=== PATIENT | male | born 1995 | race Two or more races ===

== ENCOUNTER 2020-01-19 19:00 | Emergency (ER) | payer SELFPAY ==
[~2020-01-19] VITALS: Ht 175.3 cm; Wt 86.3 kg
[2020-01-19] MEDS ORDERED: IV NORMAL SALINE 1000ML BAG 1,000 ML IV SCH (19:33)
[2020-01-19] MEDS ORDERED: ONDANSETRON PF 4 MG/2 ML VIAL. ONE (19:35)
[2020-01-19] MEDS ORDERED: HYDROmorphone 2 MG/ML VIAL ONE (19:36)
[2020-01-19 19:41] LABS: BASO # 0.1 x10^3/uL (0.0-0.2); BASO % 1 % (0-3); EOS % 0 % (0-3); HEMATOCRIT 42.2 % (39.0-53.0); HEMOGLOBIN 14.6 g/dL (13.0-17.5); LYMPH # 2.2 x10^3/uL (1.0-4.8); LYMPH % 20 % (24-48); MEAN CORPUSCULAR HEMOGLOBIN 30 pg (25-35); MEAN CORPUSCULAR HGB CONC 35 g/dL (31-37); MEAN CORPUSCULAR VOLUME 87 fL (79-100); MONO % 9 % (0-9); NEUT % 70 % (31-73); PLATELET COUNT 354 x10^3/uL (140-400); RED BLOOD COUNT 4.82 x10^6/uL (4.30-5.70); WHITE BLOOD COUNT 11.3 x10^3/uL (4.0-11.0)
[2020-01-19] MEDS: HYDROmorphone 2 MG/ML VIAL IV/SQ PRN ×2 (19:45→21:05)
[2020-01-19] MEDS ORDERED: ONDANSETRON PF 4 MG/2 ML VIAL. IVP ONE (19:45)
[2020-01-19 19:53] LABS: CALCIUM 9.5 mg/dL (8.5-10.1); CREATININE 1.4 mg/dL (0.7-1.3); GFR 61.3; POTASSIUM 3.3 mmol/L (3.5-5.1)
[2020-01-19 19:57] LABS: ALBUMIN 4.4 g/dL (3.4-5.0); DIRECT BILIRUBIN 0.2 mg/dL (0.0-0.2); TOTAL BILIRUBIN 0.6 mg/dL (0.2-1.0); TOTAL PROTEIN 8.2 g/dL (6.4-8.2)
[2020-01-19] MEDS ORDERED: IOHEXOL 300 MG/ML 100ML VIAL. IV ONE (20:00)
[2020-01-19] MEDS ORDERED: CONTRAST GIVEN. MC PRN (20:00)
[2020-01-19] MEDS ORDERED: ONDANSETRON PF 4 MG/2 ML VIAL. IM ONE (20:00)
--- NOTE | 2020-01-19 20:07 | RAD ---
CT abdomen pelvis with contrast dated 01/19/2020. No comparison available. CLINICAL INDICATION: Abdominal pain. TECHNIQUE: Contiguous axial imaging the abdomen pelvis performed following the intravenous demonstration of 80 cc Isovue-370. One or more of the following individualized dose reduction techniques were utilized for this examination: 1. Automated exposure control 2. Adjustment of the mA and/or kV according to patient size 3. Use of iterative reconstruction technique. FINDINGS: There is a 3 mm calcific stone at the right UVJ with mild proximal dilation the right ureter and right collecting system. Mild inflammatory stranding in the right perinephric fat. Left kidney is unremarkable. No left-sided stone or hydronephrosis. Liver, spleen, pancreas, gallbladder and adrenal glands are unremarkable. Unopacified GI tract normal in caliber and contour. No focal bowel wall thickening. The appendix is normal in caliber. No ascites or lymphadenopathy. Images of the pelvis show nondistended urinary bladder. Prostate gland normal in size. No free fluid or pelvic lymphadenopathy. Limited images of lung bases are clear. Heart size within normal limits. No pleural or pericardial effusion. Bone windows show no acute findings. IMPRESSION: 1. There is a 3 mm calcific stone at the right UVJ with mild obstructive uropathy. 2. Otherwise no acute findings. Normal appendix. Electronically signed by: Wilfrido Taylor MD (01/19/2020 8:04 PM) [facility]
[2020-01-19] MEDS ORDERED: KETOROLAC 15 MG/ML VIAL. IVP ONE (21:00)
[2020-01-19] MEDS ORDERED: TAMSULOSIN 0.4 MG CAP.ER.24H. PO ONE (21:00)
[2020-01-19 21:24] LABS: BILIRUBIN,URINE NEGATIVE (NEG); COLOR,URINE YELLOW; NITRITE,URINE NEGATIVE (NEG); PH,URINE 8.5 (<5.0-8.0); PROTEIN,URINE 100 mg/dL (NEG-TRACE); UROBILINOGEN,URINE 0.2 mg/dL (0.2 mg/dL)
[2020-01-19 21:31] LABS: AMORPHOUS SEDIMENT,UR PRESENT /HPF; BACTERIA,URINE 0 /HPF (0-FEW); BARBITURATES NEG (NEG); BENZODIAZEPINES NEG (NEG); CANNABINOIDS NEG (NEG); CLARITY,URINE CLOUDY; COCAINE NEG (NEG); METHADONE NEG (NEG); OPIATES POS (NEG); PHENCYCLIDINE NEG (NEG)
[2020-01-19 21:32] LABS: RBC,URINE OCC /HPF (0-2); WBC,URINE OCC /HPF (0-4)
[2020-01-19 21:34] LABS: AMPHETAMINE/METHAMPHETAMINE NEG (NEG)
[2020-01-19 21:58] VITALS: BP 133/75
[2020-01-19] MEDS ORDERED: TAMS0.4C97 PO (22:18)
[2020-01-19] MEDS ORDERED: HYDR-3164 PO (22:18)
[2020-01-19] MEDS ORDERED: FAMO-63 PO (22:18)
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
== END 2020-01-19 22:29 | disposition home or self-care (01) ==
LOC: ER 19:00
DX: N13.9 Obstructive and reflux uropathy, unspecified (principal); N17.9 Acute kidney failure, unspecified; N20.1 Calculus of ureter
CPT/HCPCS: 36415; 74177; 80048; 80076; 80307; 81001; 82550; 83690; 85025; 96361; 96374; 96375; 96376; 99285; J1170; J1885; J2405; J7030